=== PATIENT | female | born 1955 | race Caucasian/White ===

== ENCOUNTER → 2024-08-19 07:50 | Outpatient (REF) | payer MEDICARE, OTHER, SELFPAY | LOC: WDC 07:50 | PROVIDERS: ATTENDING PHYSICIAN Nurse Practitioner Adult Health | DX: M85.89 Other specified disorders of bone density and structure, multiple sites (principal); Z12.31 Encounter for screening mammogram for malignant neoplasm of breast | CPT/HCPCS: 77063; 77067; 77080 ==